=== PATIENT | male | born 1965 | race Caucasian/White ===

== ENCOUNTER 2020-09-01 17:14 | Emergency (ER) | payer BC, SELFPAY ==
[2020-09-01 17:21] VITALS: BP 177/94; PULSE 82; RESP 20; TEMP 36.1; O2SAT 100
--- NOTE | 2020-09-01 17:28 | ED.URI ---
HPI - URI/Sore Throat General Chief Complaint: Upper Respiratory Infection Stated Complaint: cough/headache/stuffy nose Time Seen by Provider: 09/01/20 17:17 Source: patient Mode of arrival: ambulatory Limitations: no limitations History of Present Illness HPI Narrative: 55-year-old male presents to [facility] with complaints of productive cough of yellow-colored phlegm, body aches, chills and headache for the past 7 to 10 days. Patient reports that he had similar symptoms yearly and usually requires a Z-Shimon. Patient reports that he is also concerned about Covid. Patient is a non-smoker. Patient denies sick contacts. Patient denies recent travel. Patient denies shortness of breath, wheezing, fever, dizziness, nausea, vomiting or diarrhea. MD elicited complaint: cough Onset (ago): week(s) (1) Severity: mild Able to tolerate fluids by mouth: Yes Relieving factors: nothing Treatments prior to arrival: none Related Data Allergies Allergy/AdvReac Type Severity Reaction Status Date / Time No Known Allergies Allergy Verified 09/01/20 17:22 Review of Systems Constitutional: Constitutional: Reports chills, Reports fatigue, Denies fever(s) and Denies weakness ENT: Denies dysphagia, Denies dizziness, Denies epistaxis, Denies nasal congestion and Denies sore throat Cardiovascular: Cardiovascular: Denies chest pain Respiratory: Respiratory: Denies chest congestion, Reports cough, Denies dyspnea and Denies wheezing Gastrointestinal: Gastrointestinal: Denies abdominal pain, Denies diarrhea, Denies nausea and Denies vomiting Neurologic: Denies confusion, Denies vertigo, Denies dizziness, Denies syncope, Reports headache(s), Denies focal weakness and Denies weakness PMFSH Family History Family History (Updated 09/01/20 @ 17:31 by Lexie Ribeiro APRN) Father Acute myocardial infarction Social History Social History (Updated 09/01/20 @ 17:31 by Lexie Ribeiro APRN) Smoking status: Never smoker Second hand tobacco smoke exposure: No Comments At time of signature, I agree with nursing past medical, surgical, social and family history. There is no relevant family history pertinent to the presenting complaint. Exam Const: General: no acute distress and alert Nutritional Appearance: well nourished Orientation/consciousness: patient oriented x3 HENMT: Head: normal to inspection Ears: TM's normal bilaterally General nose exam: Normal external nose present Mouth: Yes lip normal and Yes moist mucous membranes Throat: posterior oropharynx normal and uvula midline Neck: Neck: normal visual inspection Resp: Effort & Inspection: normal respiratory effort, not labored, not tachypneic and no use of accessory muscles Auscultation: clear to auscultation bilaterally, no crackles, no rales, no rhonchi, no wheezes and lung sounds not diminished Cardio: Rate: regular rate, not bradycardic and not tachycardic Rhythm: regular rhythm Heart sounds: no murmurs Skin: General skin exam: normal color, no jaundice and no pallor Rashes: no rashes Wounds: no wounds Neuro: General: patient oriented x3 and moves all extremities Speech: normal speech Psych: Appearance: grossly normal Mental Status: mental status grossly normal Affect: normal affect Attitude: cooperative Thought content: Yes Normal thought content present Course Vital Signs Vital signs: Vital Signs Temperature 36.1 C L 09/01/20 17:21 Pulse Rate 82 09/01/20 17:21 Respiratory Rate 20 09/01/20 17:21 Blood Pressure 177/94 H 09/01/20 17:21 Pulse Oximetry 100 09/01/20 17:21 Temperature 36.1 C L 09/01/20 17:21 Pulse Rate 82 09/01/20 17:21 Respiratory Rate 20 09/01/20 17:21 Blood Pressure 177/94 H 09/01/20 17:21 Pulse Oximetry 100 09/01/20 17:21 MDM - URI/Sore Throat MDM Narrative Medical decision making narrative: COVID-19 swab ordered. Patient understands that [facility] call him for appointment date and time for COVID-19 s
[2020-09-01 17:45] VITALS: BP 154/94
== END 2020-09-01 17:47 | disposition home or self-care (01) ==
PROVIDERS: Emergency Provider Nurse Practitioner Family
DX: J06.9 Acute upper respiratory infection, unspecified (principal); Z20.828 Contact with and (suspected) exposure to other viral communicable diseases
CPT/HCPCS: 99213; G0463

== ENCOUNTER 2020-09-02 07:02 | Outpatient (NON) | payer BC, SELFPAY ==
[2020-09-02 22:01] LABS: SARS-CoV-2 RNA PCR Negative
== END 2020-09-02 07:03 ==
LOC: ANHCOVIDDT 07:13
PROVIDERS: Visit Provider Nurse Practitioner Family
DX: Z20.828 Contact with and (suspected) exposure to other viral communicable diseases (principal); R05 Cough
CPT/HCPCS: 87635; C9803; U0003

== ENCOUNTER → 2020-12-03 06:55 | Outpatient (CLI) | payer BC, SELFPAY ==
[2020-12-03 19:28] LABS: SARS-CoV-2 RNA PCR Positive
== END ==
PROVIDERS: PCP Family Medicine; Visit Provider Family Medicine
DX: U07.1 COVID-19 (principal)
CPT/HCPCS: C9803; U0003; U0005

== ENCOUNTER 2022-07-26 13:40 | Emergency (ER) | payer OTHER, SELFPAY ==
--- NOTE | 2022-07-26 13:52 | ED.URI ---
HPI - URI/Sore Throat General Chief Complaint: Upper Respiratory Infection Stated Complaint: COUGH/FEVER/RUNNY NOSE/VOMITING/DIARRHEA Time Seen by Provider: 07/26/22 13:52 Source: patient Mode of arrival: ambulatory Limitations: no limitations History of Present Illness HPI Narrative: 57-year-old man presents with complaint of a nasal congestion, cough, sore throat, fatigue, nausea for 3 days. Denies chest pain shortness of breath. States his and daughter were sick with similar symptoms and now feeling better. Wants to make sure he does not need an antibiotic. All systems reviewed and negative except as noted above. Related Data Home Medications Medication Instructions Recorded Confirmed albuterol sulfate 90 mcg/actuation 90 mcg inhalation PRN PRN 07/26/22 07/26/22 aerosol inhaler Shortness Of Breath Or Wheezing atorvastatin 10 mg tablet 10 mg PO DAILY 07/26/22 07/26/22 losartan 25 mg tablet 25 mg PO DAILY 07/26/22 07/26/22 omeprazole 40 mg capsule,delayed 40 mg PO DAILY 07/26/22 07/26/22 release Allergies Allergy/AdvReac Type Severity Reaction Status Date / Time No Known Allergies Allergy Verified 07/26/22 13:52 Review of Systems Review of Systems: CONSTITUTIONAL: Denies fever, chills, or sweats. Reports fatigue. EYES: Denies visual changes, redness, or discharge. ENT: Reports rhinorrhea, congestion, sore throat. Denies otalgia. CARDIOVASCULAR: Denies chest pain, palpitations, or edema. RESPIRATORY: Reports cough. Denies dyspnea. GASTROINTESTINAL: Denies abdominal pain, nausea, vomiting, or diarrhea. GENITOURINARY: Denies dysuria or hematuria. SKIN: Denies rash or itching. MUSCULOSKELETAL: Denies back pain, joint pain, or myalgia. NEUROLOGIC: Denies headache, numbness, or weakness. PSYCHIATRIC: Denies anxiety or depression. All other systems reviewed are negative, except as documented in HPI. [facility] Family History Family History (Updated 09/01/20 @ 17:31 by Lexie Ribeiro APRN) Father Acute myocardial infarction Social History Social History (Updated 09/01/20 @ 17:31 by Lexie Ribeiro APRN) Smoking status: Never smoker Second hand tobacco smoke exposure: No Comments At time of signature, agree with nursing past medical, surgical, social and family history. There is no relevant family history pertinent to the presenting complaint. Exam Narrative: GENERAL: This is a well-nourished, well-developed patient, in no apparent distress. HEAD: normocephalic, atraumatic. EYES: PERRL. Sclera clear/white. Vision is grossly intact. EARS: External ears normal, auditory canals clear and without drainage, TMs normal without perforation. Hearing grossly intact. NOSE: External nose normal with n clear nasal drainage. No erythema or swelling to nares. THROAT: Mucous membranes moist, posterior pharynx clear. NECK: Neck supple, non-tender without lymphadenopathy, masses or thyromegaly. CARDIOVASCULAR: Regular rate and rhythm without murmurs, gallops, or rubs. RESPIRATORY: Clear to auscultation. Breath sounds equal bilaterally. No wheezes, rales, or rhonchi. SKIN: warm, Dry, intact with no suspicious lesions or rash, good texture and turgor. NEURO: awake, alert, and oriented to person, place and time. There were no obvious focal neurologic abnormalities. EXTREMITIES: No joint tenderness, effusion, or edema noted. Course Course Level of Care: Express Care Visit Vital Signs Vital signs: Vital Signs Temperature 36.6 C 07/26/22 13:57 Pulse Rate 89 07/26/22 13:57 Respiratory Rate 16 07/26/22 13:57 Blood Pressure 150/99 H 07/26/22 13:57 Pulse Oximetry 99 07/26/22 13:57 Temperature 36.6 C 07/26/22 13:57 Pulse Rate 89 07/26/22 13:57 Respiratory Rate 16 07/26/22 13:57 Blood Pressure 150/99 H 07/26/22 13:57 Pulse Oximetry 99 07/26/22 13:57 Reviewed MDM - URI/Sore Throat MDM Narrative Medical decision making narrative: Patient is aware of diagnosis, underst
[2022-07-26 13:57] VITALS: BP 150/99; PULSE 89; RESP 16; TEMP 36.6; O2SAT 99
== END 2022-07-26 14:20 | disposition home or self-care (01) ==
PROVIDERS: Emergency Provider Nurse Practitioner Family
DX: J06.9 Acute upper respiratory infection, unspecified (principal); E78.00 Pure hypercholesterolemia, unspecified; K21.9 Gastro-esophageal reflux disease without esophagitis; J45.909 Unspecified asthma, uncomplicated
CPT/HCPCS: 87804; 99213; G0463